=== PATIENT | male | born 1990 | race Caucasian/White ===

== ENCOUNTER 2019-09-06 13:33 | Outpatient (CLI) | payer OTHER, SELFPAY ==
--- NOTE | ~2019-09-06 | MR_ITS ---
EXAMINATION: MR lumbar spine wo con DATE: 09/06/2019 14:25 INDICATION: Chronic sciatica. TECHNIQUE: Magnetic resonance imaging (MRI) of the lumbar spine was performed without intravenous con trast. Sequences included sagittal T2-weighted FSE, sagittal T2-weighted FS FSE, sagittal T1-weighted FSE, and axial T2-weighted FSE. COMPARISON: None FINDINGS: Bone alignment is normal. There is mild chronic anterior wedging of T12 vertebral body. The re is moderately decreased disc height at T11-T12. The distal spinal cord signal intensity is normal. The conus medullaris is at L2. The following disc levels are specifically discussed: T11-T12: There is a central extrusion. There is no facet joint osteoarthritis. There is no neural for aminal stenosis. There is mild central canal stenosis with ventral indentation of the spinal cord. L1-L2: The disc does not extend beyond the endplate margin. There is mild right facet joint osteoarth ritis. There is no neural foraminal stenosis. There is no central canal stenosis. L2-L3: The disc does not extend beyond the endplate margin. There is mild left facet joint osteoarthr itis. There is no neural foraminal stenosis. There is no central canal stenosis. L3-L4: The disc does not extend beyond the endplate margin. There is no facet joint osteoarthritis. T here is no neural foraminal stenosis. There is no central canal stenosis. L4-L5: The disc does not extend beyond the endplate margin. There is mild left facet joint osteoarthr itis. There is no neural foraminal stenosis. There is no central canal stenosis. L5-S1: The disc does not extend beyond the endplate margin. There is no facet joint osteoarthritis. T here is no neural foraminal stenosis. There is no central canal stenosis. IMPRESSION: 1. 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 Moderate lower thoracic spondylosis. Reviewed, dictated and finalized at location A. [employer] IMPRESSION: 1. 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 Moderate lower thoracic spo ndylosis.
== END 2019-09-06 13:34 | disposition home or self-care (01) ==
DX: M54.30 Sciatica, unspecified side (principal); M85.88 Other specified disorders of bone density and structure, other site; M47.814 Spondylosis without myelopathy or radiculopathy, thoracic region
CPT/HCPCS: 72148